=== PATIENT | male | born 1950 | race Hispanic/Latino ===

== ENCOUNTER 2021-12-31 07:52 | Day surgery (SDC) | payer MEDICARE ==
[2021-12-31] MEDS ORDERED: ASPIRIN EC 325 MG TAB PO SCH (08:00)
[2021-12-31 08:45] LABS: Basophils # (Auto) 0.1 K/mm3 (0.0-0.1); Basophils % (Auto) 0.9 % (0.0-1.8); Eosinophils # (Auto) 0.2 K/mm3 (0.0-0.4); Hematocrit 42.9 % (35.5-45.6); Hemoglobin 14.2 gm/dl (11.8-15.2); Lymphocytes # (Auto) 2.2 K/mm3 (1.2-5.4); Lymphocytes % (Auto) 28.4 % (13.4-35.0); Mean Corpuscular HGB Conc 33 % (32-34); Mean Corpuscular Volume 87 fl (84-94); Monocytes # (Auto) 0.4 K/mm3 (0.0-0.8); Monocytes % (Auto) 5.4 % (0.0-7.3); Platelet Count 236 K/mm3 (140-440); Red Blood Count 4.92 M/mm3 (3.65-5.03); Red Cell Distribution Width 15.4 % (13.2-15.2)
[2021-12-31 08:56] LABS: INR 0.87 (0.87-1.13)
[2021-12-31 08:57] LABS: BUN/Creatinine Ratio 21; Blood Urea Nitrogen 17 mg/dL (9-20); Calcium 9.5 mg/dL (8.4-10.2); Hemolysis Index 5
[2021-12-31] MEDS ORDERED: DOBUTamine 100 MG in DEXTROSE 5% IN WATER 92 ML IV ONE (09:00)
--- NOTE | 2021-12-31 09:09 | Electrocardiograph Report ---
[facility] Test Date: 2021-12-31 Test Time: 08:50:19 Pat Name: LINO RABAGO Department: Room: Gender: M Cytology Manager: BRANDI : 1950 Requested By: RAVINDER MONROY Order Number: [id number] Reading MD: Ravinder Monroy Measurements Intervals [place] Rate: 87 P: 30 [place]: 185 QRS: -71 QRSD: 105 T: 46 QT: 375 QTc: 448 Interpretive Statements Sinus rhythm Ventricular premature complex nonspecific st-t No previous ECG available for comparison Electronically Signed On 12-31-2021 9:09:32 EDT by Ravinder Monroy
[2021-12-31] MEDS ORDERED: LIDOCAINE (2%) 20 MG/1 ML VIAL 50 ML MDV INFILTRATI ONE (09:23)
[2021-12-31] MEDS ORDERED: HEPARIN 10,000 UNITS/10 ML VIAL ONE (09:23)
[2021-12-31] MEDS: SODIUM CHLORIDE 0.9% 500 ML 500 ML IV SCH ×3 (09:53→10:57)
[2021-12-31] MEDS ORDERED: MIDAZOLAM 2 MG/2 ML INJ ONE (10:46)
[2021-12-31] MEDS: HEPARIN/NS 5000 UNIT/500ML 1,500 ML IR ONE ×2 (10:52→11:00)
[2021-12-31] MEDS: fentaNYL 100 MCG/2 ML INJ ONE ×2 (10:58→11:05)
[2021-12-31] MEDS ORDERED: HYDROcodone/ACETAMINOPHEN 5-325 MG TAB PO PRN (11:39)
--- NOTE | 2021-12-31 11:45 | Short Stay Summary ---
Short Stay Documentation Date of service: 12/31/21 - History H&P: obtained from office - Allergies and Medications Current Medications: Allergies No Known Allergies Allergy (Verified 12/31/21 08:21) Home Medications Medication Instructions Recorded Confirmed Last Taken Type ALPRAZolam [Xanax TAB] 0.5 mg PO BID PRN 12/31/21 12/31/21 12/26/21 History Apixaban [Eliquis] 5 mg PO Q12H 12/31/21 12/31/21 12/27/21 History Atorvastatin [Lipitor Tab] 120 mg PO QHS 12/31/21 12/31/21 12/27/21 History Cholecalciferol Vit D3 [Vitamin D3 1,000 unit PO QDAY 12/31/21 12/31/21 12/27/21 History 1,000 UNIT TAB] Colchicine [Colcrys] 0.6 mg PO DAILY 12/31/21 12/31/21 2 Weeks Ago History ~12/17/21 Gabapentin [Neurontin] 100 mg PO DAILY 12/31/21 12/31/21 12/27/21 History Sertraline [Zoloft] 100 mg PO QDAY 12/31/21 12/31/21 12/27/21 History allopurinoL [Zyloprim] 300 mg PO QDAY 12/31/21 12/31/21 12/27/21 History glipiZIDE [Glucotrol] 20 mg PO BID 12/31/21 12/31/21 12/29/21 History metFORMIN [Glucophage] 1,000 mg PO BID 12/31/21 12/31/21 12/27/21 History Active Medications Aspirin (Aspirin Ec 325 Mg Tab) 325 mg PO ONCE@0800 CORY Stop: 12/31/21 17:00 Last Admin: 12/31/21 09:53 Dose: 325 mg Sodium Chloride (Nacl 0.9% 500 Ml) 500 mls @ 50 mls/hr IV DIRECT CORY Stop: 12/31/21 18:59 Last Admin: 12/31/21 09:53 Dose: 50 mls/hr - Physical exam Integumentary: other (right femoral cath site, clean, dry, intact, no bleeding or hematoma noted on exam. pressure dressing in place.) - Brief post op/procedure progress note Date of procedure: 12/31/21 Pre-op diagnosis: Abnl echocardiogram, abnl stress test, Aortic Stenosis Post-op diagnosis: same (low output severe ) Anesthesia: local Estimated blood loss: minimal Condition: stable - Hospital course Hospital course: Patient presented to [facility] for scheduled OP heart cath for further evaluation of . Heart cath performed via R [employer]. Patient tolerated procedure well, no complications during the procedure. Patient found to have low output severe and will be referred for TAVR. Questions answered and addressed with patient by Dr. Monroy. Patient will be discharged home with instructions to follow up in the office. - Disposition Condition at discharge: Good Disposition: 01 HOME / SELF CARE / HOMELESS - Discharge Diagnoses (1) Aortic stenosis, severe Status: Acute Comment: low output severe Short Stay Discharge Plan Activity: advance as tolerated Diet: low fat, low cholesterol, low salt Wound: keep clean and dry, per your surgeon's advice Follow up with: LINO LOPEZ [Other] - 7 Days ЕКАТЕРИНА RYAN MD [Staff Physician] - 01/20/22 1:00 pm (Follow up in our [place] location)
[2021-12-31] MEDS ORDERED: HYDROcodone/ACETAMINOPHEN 5-325 MG TAB ONE (11:46)
[2021-12-31] MEDS ORDERED: traMADol 50 MG TAB PO PRN (12:00)
--- NOTE | 2021-12-31 12:14 | Cardiac Catherization Report ---
DATE OF SERVICE: 12/31/2021 LEFT HEART CATHETERIZATION CLINICAL INFORMATION: This is a 71-year-old male with paroxysmal atrial fibrillation, morbid obesity, history of lap band, diabetes, hypertension with moderate LV dysfunction with moderate to severe aortic stenosis, is here for a left heart cath for assessment of aortic stenosis. Procedure was done with moderate sedation, started at 10:57, finished at 11:23, 30 minutes of moderate sedation. DESCRIPTION OF PROCEDURE: Procedure was done via the right common femoral artery, sterile technique and local anesthesia. A 6-Hungarian groin sheath inserted. Left system engaged with JL5 catheter. Left main is a short, large, patent. LAD proximal large caliber, was patent. Then, diagonal 1 is a small caliber, was patent. After diagonal, there is a calcified 30% lesion. Circumflex is a large caliber vessel, goes into a large caliber OM1 with multiple branches, are patent. RCA engaged with JR4 catheter, is a large dominant vessel, proximal, there is a focal 30% lesion. Rest of the RCA is patent. LV gram done in the [employer] [facility] and [place] shows mild LV dysfunction, EF 35-40%, LVEDP of 18 mmHg. Initial readings were aortic of 148/82. LV is 173 with LVEDP 18 mmHg, [id number] was 2.5 mmHg, mean was 30 mmHg. After dobutamine 20 mcg, gradient increased with an aortic rate of 126/67, LV of 190/12 with his hagp-if-wohn of 64 mmHg, mean of 33 mmHg and then went to 30 mcg of dobutamine and the patient had an LV of 196, LVEDP 18, aortic was 115/60, xagn-ej-auay of 81 mmHg, mean of 64 mmHg. JR4 was taken into the LV. There was no significant gradient from the aortic pressure in the ascending aorta to the femoral artery at the sheath. The 5-Hungarian catheters all taken over guidewire. A 6-Hungarian groin sheath was discontinued, manual pressure held, no hematoma, no bleeding. SUMMARY: Nonobstructive coronary artery disease, left main short and patent. LAD proximal patent, mid 30%, diagonal 1 patent. Circumflex patent. OM1 patent. RCA proximal 30%. Moderate LV dysfunction with dobutamine-induced at 30 mcg, significant aortic stenosis with a mean of 64 mmHg and peak of 81 mmHg. The patient has low output severe aortic stenosis. RECOMMENDATIONS: The patient will be referred for TAVR. Discussed this with the patient and the patient's family in detail. TID: [id number] RECEIPT: [id number] [facility]/GALEN
[2021-12-31] MEDS ORDERED: MORPHINE 2 MG/1 ML INJ IV ONE (12:59)
[2021-12-31 15:14] VITALS: BP 130/89
== END 2021-12-31 16:07 | disposition home or self-care (01) ==
LOC: CATHLABREC 07:52
PROVIDERS: ATTEND Internal Medicine
DX: I35.0 Nonrheumatic aortic (valve) stenosis (principal); I48.0 Paroxysmal atrial fibrillation; R94.30 Abnormal result of cardiovascular function study, unspecified; I25.10 Atherosclerotic heart disease of native coronary artery without angina pectoris; E78.5 Hyperlipidemia, unspecified; I10 Essential (primary) hypertension; G47.30 Sleep apnea, unspecified; M19.90 Unspecified osteoarthritis, unspecified site; F32.9 Major depressive disorder, single episode, unspecified; F41.9 Anxiety disorder, unspecified; E11.9 Type 2 diabetes mellitus without complications; Z79.899 Other long term (current) drug therapy; Z79.84 Long term (current) use of oral hypoglycemic drugs; Z98.890 Other specified postprocedural states; Z80.8 Family history of malignant neoplasm of other organs or systems; E66.01 Morbid (severe) obesity due to excess calories
CPT/HCPCS: 36415; 80048; 85025; 85610; 85730; 93005; 93458; 99156; 99157; C1769; C1894; J1250; J1644; J2250; J2270; J3010; J3490; J7040; J7060; Q9967